=== PATIENT | male | born 1955 | race Caucasian/White ===

== ENCOUNTER 2017-01-13 13:57 | Emergency (ER) | payer OTHER ==
[~2017-01-13 13:57] MED LIST: COLACE 100MG C100 MG PO; FEROSUL325 MG PO; LOVENOX SYR100 MG/ML SQ; NORVASC 5 MG TAB5 MG PO; THERAGRAN TAB1 EA PO; ZOCOR20 MG PO
[2017-01-13 16:48] LABS: HEMOGLOBIN 8.2 gm/dl (14.0-17.5); RED BLOOD COUNT 2.76 M/UL (4.20-5.50); WHITE BLOOD COUNT 5.9 K/UL (4.5-11.0)
[2017-01-13 17:13] LABS: BUN/CREATININE RATIO 23 (0-10)
== END 2017-01-13 21:22 | disposition home or self-care (01) ==
LOC: ER1 13:57
PROVIDERS: Family Medicine
DX: J44.0 Chronic obstructive pulmonary disease with (acute) lower respiratory infection (principal); J20.9 Acute bronchitis, unspecified; J44.1 Chronic obstructive pulmonary disease with (acute) exacerbation; D64.9 Anemia, unspecified; I27.82 Chronic pulmonary embolism; C18.9 Malignant neoplasm of colon, unspecified; C78.00 Secondary malignant neoplasm of unspecified lung; Z87.891 Personal history of nicotine dependence; Z79.01 Long term (current) use of anticoagulants; Z79.899 Other long term (current) drug therapy
CPT/HCPCS: 36415; 71020; 80053; 83605; 84484; 85025; 87040; 93005; 94664; 99284

== ENCOUNTER → 2017-04-02 | Outpatient (CLI) | payer OTHER | LOC: OPSV 12:37 → CT 12:37 | DX: C78.7 Secondary malignant neoplasm of liver and intrahepatic bile duct (principal); C78.00 Secondary malignant neoplasm of unspecified lung; C18.7 Malignant neoplasm of sigmoid colon; K76.89 Other specified diseases of liver; R59.0 Localized enlarged lymph nodes | CPT/HCPCS: 71260; J1642; J7050; Q9962 ==